=== PATIENT | male | born 1995 | race Caucasian/White ===

== ENCOUNTER 2019-10-04 18:11 | Emergency (ER) | payer OTHER, SELFPAY ==
[2019-10-04 18:20] VITALS: BP 121/70; PULSE 70; RESP 16; TEMP 36.9; O2SAT 99
--- NOTE | 2019-10-04 18:27 | ED.URI ---
HPI - URI/Sore Throat General Chief Complaint: Upper Respiratory Infection Stated Complaint: RUNNY NOSE/CONGESITON/HEADACHE/SINUS PAIN Time Seen by Provider: 10/04/19 18:27 Source: patient, family and RN notes reviewed Mode of arrival: ambulatory Limitations: no limitations History of Present Illness HPI Narrative: 23-year-old male who presents to express care with complaints of sinus congestion with pressure to his forehead and face since Wednesday. Patient states symptoms have increased since Wednesday with increase drainage, and also now pressure to forehead has increased. Patient states that he has been taking Advil cold and sinus with minimal decrease in his discomfort and symptoms. Patient now states also that he feels like he has a lot of mucous in his throat, denies any known fevers chills or sweat, denies any sore throat or any acute cough. MD elicited complaint: rhinorrhea, nasal congestion and sinus pain (post nasal drainage) Pertinent past history: sinusitis Onset (ago): day(s) (5) Consistency: progressively worsening Pain scale (0-10): 3 Description of mucous: clear Able to tolerate fluids by mouth: Yes Exacerbating factors: changing head position Relieving factors: nothing Associated symptoms: headache, rhinorrhea, nasal congestion and other (facial pain and pressure, post nasal drainage) Treatments prior to arrival: other (advil cold and sinus) Related Data Allergies Allergy/AdvReac Type Severity Reaction Status Date / Time amoxicillin Allergy Hives Verified 10/04/19 18:19 Review of Systems Review of Systems: Narrative: CONSTITUTIONAL: Denies fever, chills, or sweats. EYES: Denies visual changes, redness, or discharge. ENT: positive rhinorrhea, congestion, no sore throat, or otalgia. CARDIOVASCULAR: Denies chest pain, palpitations, or edema. RESPIRATORY: Denies cough or dyspnea. GASTROINTESTINAL: Denies abdominal pain, nausea, vomiting, or diarrhea. GENITOURINARY: Denies dysuria or hematuria. SKIN: Denies rash or itching. MUSCULOSKELETAL: Denies back pain, joint pain, or myalgia. NEUROLOGIC: positive headache, numbness, or weakness. PSYCHIATRIC: Denies anxiety or depression. All systems reviewed & are unremarkable except as noted in HPI and below PMFSH Past Medical History Medical History (Updated 10/04/19 @ 18:57 by Josette Hightower NP) Sinusitis Social History Social History (Updated 10/04/19 @ 18:58 by Josette Hightower NP) Smoking status: Never smoker Living arrangements: with roommate(s) Occupation/Education: student Gender identity (if verbalized by the patient): Male Comments At time of signature, agree with nursing past medical, social history. There is no relevant family history pertinent to the presenting complaint Exam Narrative: Exam Narrative: GENERAL: Well-appearing, well-nourished, and in no acute distress. HEAD: Normocephalic, atraumatic. EYES: PERRLA and EOMI. ENT: Nares red with clear rhinorrhea, facial pressure and forehead discomfort, no epitaxis, Mucous membranes moist. throat pink with no lesions or exuddates, post nasal drainage noted, no tonsil swelling. NECK: Supple.no lymphadenopathy CHEST: Clear to auscultation. No respiratory distress.SAO2 99% on room air HEART: Regular rate and rhythm. No murmur heard. Normal peripheral pulses. ABDOMEN: Soft, nontender, nondistended, normal active bowel sounds. EXTREMITIES: Normal range of motion. No edema. SKIN: Warm, dry, no rash. NEURO: No focal deficits. Alert and oriented x3. Course Vital Signs Vital signs: Vital Signs Temperature 36.9 C 10/04/19 18:20 Pulse Rate 70 10/04/19 18:20 Respiratory Rate 16 10/04/19 18:20 Blood Pressure 121/70 10/04/19 18:20 Pulse Oximetry 99 10/04/19 18:20 Temperature 36.9 C 10/04/19 18:20 Pulse Rate 70 10/04/19 18:20 Respiratory Rate 16 10/04/19 18:20 Blood Pressure 121/70 10/04/19 18:20 Pulse Oximetry 99 10/04/19 18:20 MDM - URI/Sore Throat Different
== END 2019-10-04 18:47 | disposition home or self-care (01) ==
PROVIDERS: Emergency Provider Registered Nurse
DX: J00 Acute nasopharyngitis [common cold] (principal); J01.90 Acute sinusitis, unspecified
CPT/HCPCS: 99213; G0463